=== PATIENT | male | born 1980 | race African-American/Black ===

== ENCOUNTER 2017-12-25 06:19 | Emergency (ER) | payer OTHER ==
[~2017-12-25] VITALS: Ht 182.9 cm; Wt 81.7 kg
[~2017-12-25 06:19] MED LIST: FLEXERIL PO; IBUPROFEN 600600 M1 PO; IBUPROFEN 800800 MG PO; NO HOME MEDS; NOHOMEMEDICATIONS; NORCO 5-325 TA1 EACH PO; NORFLEX100 MG PO; PERCOCET 5-3251 EACH PO
[2017-12-25] MEDS ORDERED: MOBIC15 MG PO (07:42)
== END 2017-12-25 07:53 | disposition home or self-care (01) ==
LOC: ER 06:19
DX: S63.502A Unspecified sprain of left wrist, initial encounter (principal); W45.8XXA Other foreign body or object entering through skin, initial encounter; Y93.89 Activity, other specified; Y92.89 Other specified places as the place of occurrence of the external cause; Y99.0 Civilian activity done for income or pay